=== PATIENT | male | born 1965 | race Caucasian/White ===

== ENCOUNTER → 2019-02-22 | Outpatient (CLI) | payer OTHER ==
[~2019-02-22] MED LIST: ASPI-630 PO; FERR325T14 PO; GARL100T PO; MULT-121 PO; NAPR500T8 PO; OMEG-117 PO; TRAM50TA PO
[2019-02-22 09:37] LABS: BASO % 1 % (0-3); EOS # 0.2 x10^3/uL (0.0-0.7); EOS % 3 % (0-3); HEMATOCRIT 45.4 % (39.0-53.0); HEMOGLOBIN 15.5 g/dL (13.0-17.5); LYMPH # 2.3 x10^3/uL (1.0-4.8); LYMPH % 31 % (24-48); MEAN CORPUSCULAR HEMOGLOBIN 31 pg (25-35); MEAN CORPUSCULAR HGB CONC 34 g/dL (31-37); MEAN CORPUSCULAR VOLUME 90 fL (79-100); MONO # 0.6 x10^3/uL (0.0-1.1); MONO % 8 % (0-9); NEUT # 4.3 x10^3/uL (1.8-7.7); NEUT % 57 % (31-73); PLATELET COUNT 208 x10^3/uL (140-400); RED BLOOD COUNT 5.06 x10^6/uL (4.30-5.70); WHITE BLOOD COUNT 7.4 x10^3/uL (4.0-11.0)
[2019-02-22 09:43] LABS: PROTHROMBIN TIME PATIENT 13.4 SEC (11.7-14.0)
[2019-02-22 09:49] LABS: ALBUMIN 3.8 g/dL (3.4-5.0); CALCIUM 8.7 mg/dL (8.5-10.1); CREATININE 0.9 mg/dL (0.7-1.3); GFR 88.6
--- NOTE | 2019-02-22 12:57 | EKG ---
[facility] [address] [place] [address] Test Date: 2019-02-22 Test Time: 12:43:14 Pat Name: BLADIMIR HENDERSON Department: Room: Gender: M [employer] Clerk: : 1965 Requested By: ASA WEBER Order Number: [id number] Reading MD: Roc Robbins Measurements Intervals [place] Rate: 76 P: 52 [place]: 172 QRS: 81 QRSD: 86 T: 9 QT: 358 QTc: 407 Interpretive Statements SINUS RHYTHM Electronically Signed On 02-23-2019 11:48:13 BATTERY CHARGER by Roc Robbins
--- NOTE | 2019-02-22 14:56 | RAD ---
CHEST PA LATERAL INDICATION: Preoperative evaluation. COMPARISON STUDY: None. FINDINGS: Lungs: Normal lung volume. No pulmonary mass or consolidation. The tracheobronchial tree and hilar structures are normal. Pleura: No pleural effusion or pneumothorax. Heart and Mediastinum: The cardiomediastinal silhouette is normal. The great vessels of the thorax are normal. Bones and Soft Tissues: Degenerative changes of the spine. IMPRESSION: No acute cardiopulmonary process. Electronically signed by: Dick Franklin MD (02/22/2019 2:53 PM) [facility]
[2019-02-22 23:07] LABS: HEMOGLOBIN A1C 5.6 % (4.8-5.6)
== END | disposition home or self-care (01) ==
LOC: SURGPAT 12:48
PROVIDERS: ATTEND Orthopaedic Surgery
DX: Z01.818 Encounter for other preprocedural examination (principal); M17.11 Unilateral primary osteoarthritis, right knee; I10 Essential (primary) hypertension
CPT/HCPCS: 36415; 71046; 80048; 82040; 82306; 83036; 85025; 85610; 85651; 85730; 87641; 93005